=== PATIENT | male | born 1945 | race Caucasian/White ===

== ENCOUNTER 2019-12-22 11:15 | Inpatient (IN) ==
[2019-12-22 11:28] VITALS: BMI 31.1
--- NOTE | 2019-12-22 11:57 | DR.SOBA ---
HPI Time Seen Time Seen by Provider: 12/22/19 11:56 Primary Care Physician Primary Care Physician: dr de jesus in [place] HPI Comment HPI Comment: PATIENT IS 74YR OLD WHITE MALE WITH HISTORY OF COPD, DM AND HYPERTENSION IS IN ER WITH INCREASING SOB AND CHEST DISCOMFORT TIMES 5 WEEKS. WORSE TODAY. NO FEVER. PATIENT SEEN IN ER IN [facility] SEVERAL TIMES. WAS TOLD HE HAD PNEUMONIA AND WAS TREATED BUT NOT IMPROVING. Complaints Chief Complaint Doctors Comments: INCREASING SOB, LOWER EXTREMITY EDEMA AND CHEST DYSCOMFORT FOR 5 WEEKS. Chief Complaint:: pt stated he has been going to [facility] and they keep telling him he has pneumonia. pt stated he has been short of breath for several weeks but it is getting worse. COVID-19 Coronavirus risk:travel/contact w/high risk person: No Has patient experienced Coronavirus symptoms: Yes Coronavirus symptoms experienced: Shortness of Breath Reviewed Nurses Notes Reviewed: Yes Source History Provided: Patient Mode of Arrival Mode of Arrival: Wheelchair Timing Onset of Chief Complaint: 11/16/19 Duration Duration: Weeks Context Onset:: At Rest PE Risk Factors:: None History of:: COPD Currently on:: Inhaled Bronchodilators Prehospital Care:: O2 and Inhaled B2 Modifying Factors Worsens:: Exertion Improves:: Rest and Sitting Up Associated Signs and Symptoms Associated Signs and Symptoms: Wheeze, Chest Pain and Leg Swelling If Chest Pain Quality: Pleuritic (TIGHTNESS.) Location: Substernal and Chest Wall If Cough Cough: Productive and Yellow PMH PMH Past Medical History: Yes Past Medical History: COPD, Diabetes, GERD and Hypertension Past Surgical History: No Family History History of Family Medical Conditions: Yes Family Medical History: Cancer and Hypertension Social History Does patient currently use any type of tobacco product: No Have you used tobacco products in the last 12 months: No Type of Tobacco Use: None Does any household member use tobacco: No Alcohol Use: None Do you use any recreational Drugs:: No Lives With: Family Lives Where: Home Travel Risk Coronavirus risk:travel/contact w/high risk person: No Has patient experienced Coronavirus symptoms: Yes Coronavirus symptoms experienced: Shortness of Breath Infectious screening In the last 2 months have you had wt loss of >10#?: NO Have you had fever, night sweats or hemotysis?: No Have you traveled outside the country in the last 6 months?: No Isolation: Droplet ROS Review of Systems Constitutional: See HPI, Weakness and Fatigue; negative Fever Eyes: No Symptoms Reported and See HPI; negative Blurred Vision and Diplopia ENTM: No Symptoms Reported and See HPI Respiratoy: See HPI, Productive Cough, Short of Breath and Wheezing; negative Hemoptysis Cardiovascular: See HPI, Chest Pain and Edema Gastrointestinal/Abdominal: No Symptoms Reported and See HPI; negative Abdominal Pain, Diarrhea, Nausea and Vomiting Genitourinary: No Symptoms Reported and See HPI; negative Dysuria, Frequency and Hematuria Neurological: No Symptoms Reported, See HPI and Weakness; negative Headache and Dizziness Musculoskeletal: See HPI, Back Pain and Muscle Pain Integumentary: No Symptoms Reported and See HPI; negative Change in Color, Rash and Juandice Hematologic/Lymphatic: See HPI and Easy Bruising; negative Swollen Glands Endocrine: No Symptoms Reported and See HPI; negative Increased Thirst, Increased Urine and Decreased Appetite Psychiatric: No Symptoms Reported and See HPI All Other Systems: Reviewed and Negative PE Vital Signs Vitals: Temperature 98.6 F Pulse Rate 75 Respiratory Rate 16 Blood Pressure 175/79 O2 Sat by Pulse Oximetry 79 General Limitations: No Limitations General Appearance: Alert and In Distress Head Head Exam: Normal Inspection and Atraumatic Eyes Eye exam: Normal Appearance and PERRL; negative Scleral Icterus and Conjunctival Injection ENT ENT Exam: Normal Exam, Normal Oropharynx, Normal External Ear Exam and TM's Normal Bilaterally Neck Neck Exam: Normal Inspection and Trachea Midline; negative Tenderness and Lymphadenopathy Chest Chest Inspection: Normal Inspection and Symmetric Chest Wall Rise; negative Tenderness Respiratory Respiratory Exam: Prolonged Expiratory Phase and Respiratory Distress; negative Accessory Muscle Use and Chest Wall Tenderness Respiratory Exam: Bilateral: Wheezing and Bilateral: Rhonchi and Lower: Wheezing and Lower: Rhonchi Cardiovascular Cardiovascular Exam: Regular Rate, Normal Rhythm, Normal Heart Sounds and +S3; negative Systolic Murmur and Diastolic Murmur Abdominal Exam Abdominal Exam: Normal Inspection, Normal Bowel Sounds and Soft; negative Tenderness Extremities Extremities Exam: Normal Inspection Back Back Exam: Normal Inspection Neurologic Neurological Exam: Alert and Oriented X3 Psychiatric Psychiatric Exam: Normal Affect and Normal Mood Skin Skin Exam: Warm, Dry, Intact and Normal Color MDM Differential Diagnosis Differential Diagnosis: CHF, COPD, Dysrhythmia, Hyponatremia, Mycardial Infarction, Pneumonia, Pneumothorax, Pulmonary embolism and Respiratory Insufficiency COURSE Treatment Treatment: SEE ORDERS. LASIX 40MG IV. DUO NEB 0.3MG/3ML IN ER. Consultation Consultation Comments: DISCUSSED PATIENT WITH DR. GREGG. HE WILL ADMIT PATIENT. Education/Counseling Education/Counseling: Patient Educated On: Diagnosis ROR Labs Reviewed Laboratory Results Reviewed?: Yes Result Diagrams: 12/22/19 12:30 12/22/19 12:30 Laboratory: WBC 6.6 X10^3/uL (3.6-10.0) 12/22/19 12:30 RBC 3.38 X10^6/uL (4.7-6.0) L 12/22/19 12:30 Hgb 7.9 g/dL (13.5-18.0) L 12/22/19 12:30 Hct 23.7 % (42.0-54.0) L 12/22/19 12:30 MCV 70.2 fL (80.0-100.0) L 12/22/19 12:30 MCH 23.4 pg (27.0-34.0) L 12/22/19 12:30 MCHC 33.3 g/dL (33.0-35.0) 12/22/19 12:30 RDW 19.0 % (11.6-16.5) H 12/22/19 12:30 Plt Count 252 X10^3/uL (150.0-450.0) 12/22/19 12:30 Plt Count Comment Adequate (ADEQUATE) 12/22/19 12:30 MPV 6.7 fL (7.4-11.0) L 12/22/19 12:30 Neut % (Auto) 85.7 % (42.0-75.0) H 12/22/19 12:30 Lymph % (Auto) 5.2 % (21.0-51.0) L 12/22/19 12:30 [place] % (Auto) 8.0 % (0.0-13.0) 12/22/19 12:30 Eos % (Auto) 0.3 % (0.9-2.9) L 12/22/19 12:30 Baso % (Auto) 0.8 % (0.2-1.0) 12/22/19 12:30 Neut # (Auto) 5.7 x10^3/uL (2.2-4.8) H 12/22/19 12:30 Lymph # (Auto) 0.3 X10^3/uL (1.3-2.9) L 12/22/19 12:30 [place] # (Auto) 0.5 x10^3/uL (0.3-0.8) 12/22/19 12:30 Eos # (Auto) 0.0 x10^3/uL (0.0-0.2) 12/22/19 12:30 Baso # (Auto) 0.1 X10^3/uL (0.0-0.1) 12/22/19 12:30 Absolute Nucleated RBC 0.0 /100WBC 12/22/19 12:30 Plt Morphology Comment Normal (NORMAL) 12/22/19 12:30 RBC Morphology Abnormal (NORMAL) 12/22/19 12:30 Hypochromasia 1+ A 12/22/19 12:30 Sample Site Rrad 12/22/19 12:03 ABG pH 7.470 (7.35-7.45) H 12/22/19 12:03 ABG pCO2 55.0 mmHg (35.0-45.0) H* 12/22/19 12:03 ABG pO2 72.0 mmHg (80.0-100.0) L 12/22/19 12:03 ABG HCO3 40.0 mmol/L (22-26) H* 12/22/19 12:03 ABG O2 Saturation 95.0 % (90-100) 12/22/19 12:03 ABG Base Excess 14.0 mmol/L (-2.0-2.0) H 12/22/19 12:03 Christiano Test Pos 12/22/19 12:03 A-a Gradient 116.0 mmHg 12/22/19 12:03 FiO2 36.0 12/22/19 12:03 Blood Gas Comments Pt merlin well elj 12/22/19 12:03 Sodium 127 mmol/L (136-145) L 12/22/19 12:30 Corrected Sodium 130 mmol/L (136-145) L 12/22/19 12:30 Potassium 3.7 mmol/L (3.5-5.1) 12/22/19 12:30 Chloride 88 mmol/L (98-107) L 12/22/19 12:30 Carbon Dioxide 37.5 mmol/L (21-32) H 12/22/19 12:30 BUN 11 mg/dL (7-18) 12/22/19 12:30 Creatinine 0.72 mg/dL (0.70-1.30) 12/22/19 12:30 Est GFR (MDRD) Af Amer > 60 (>60) 12/22/19 12:30 Est GFR (MDRD) Non-Af > 60 (>60) 12/22/19 12:30 Glucose 229 mg/dL (65-99) H 12/22/19 12:30 Calcium 9.0 mg/dL (8.5-10.1) 12/22/19 12:30 Corrected Calcium 9.6 mg/dL (8.5-10.1) 12/22/19 12:30 Iron 15 ug/dL (50-175) L 12/22/19 12:30 Transferrin 247 mg/dL (202-364) 12/22/19 12:30 Ferritin 29 ng/mL (26-388) 12/22/19 12:30 Total Bilirubin 0.30 mg/dL (0.2-1.0) 12/22/19 12:30 AST 15 Units/L (15-37) 12/22/19 12:30 ALT 25 Units/L (12-78) 12/22/19 12:30 Alkaline Phosphatase 91 Units/L (46-116) 12/22/19 12:30 Creatine Kinase 100 Units/L (39-308) 12/22/19 12:30 CK-MB (CK-2) 1.9 ng/mL (0-4.0) 12/22/19 12:30 CK/CKMB % Calc 1.9 % (<4) 12/22/19 12:30 Troponin I < 0.02 ng/mL (0-1.5) 12/22/19 12:30 B-Natriuretic Peptide 424 pg/mL (0-79) H 12/22/19 12:30 Total Protein 6.6 g/dL (6.4-8.2) 12/22/19 12:30 Albumin 3.3 g/dL (3.4-5.0) L 12/22/19 12:30 Globulin 3.3 g/dL (2.5-4.5) 12/22/19 12:30 Albumin/Globulin Ratio 1.0 Ratio (1.1-2.1) L 12/22/19 12:30 Vitamin B12 629 pg/mL (193-986) 12/22/19 12:30 Folate 6.1 ng/mL (>8.6) L 12/22/19 12:30 Specimen Type Clean catch urine 12/22/19 12:10 Urine Color Yellow (YELLOW) 12/22/19 12:10 Urine Appearance Hazy (CLEAR) 12/22/19 12:10 Urine pH 8.0 (5.0 - 8.0) 12/22/19 12:10 Ur Specific [place] 1.010 (1.000-1.030) 12/22/19 12:10 Urine Protein 3+ (NEGATIVE) 12/22/19 12:10 Urine Glucose (UA) 4+ (NEGATIVE) 12/22/19 12:10 Urine Ketones Negative (NEGATIVE) 12/22/19 12:10 Urine Occult Blood Negative (NEGATIVE) 12/22/19 12:10 Urine Nitrite Negative (NEGATIVE) 12/22/19 12:10 Urine Bilirubin Negative (NEGATIVE) 12/22/19 12:10 Urine Urobilinogen Normal (NORMAL) 12/22/19 12:10 Ur Leukocyte Esterase Negative (NEGATIVE) 12/22/19 12:10 Urine RBC None seen /HPF (0-3) 12/22/19 12:10 Urine WBC None seen /HPF (0-5) 12/22/19 12:10 Ur Squamous Epith Cells Negative /HPF (NEGATIVE) 12/22/19 12:10 Urine Bacteria Negative /HPF (NEGATIVE) 12/22/19 12:10 Urine Mucus Few /HPF (NEGATIVE) 12/22/19 12:10 Ur Culture Indicated? No/not indicated 12/22/19 12:10 Blood Type O POSITIVE 12/22/19 12:20 Antibody Screen Negative 12/22/19 12:20 Crossmatch See Detail 12/22/19 12:20 EKG Rate: 88 [place]: Normal Rhythm: NSR Block: None Hypertrophy: LVH ST: Lat and Nonsp Opioid Opioid Risk Tool Age (Santos box if 16-45): No History of Preadolescent Sexual Abuse: No Total: 0 Total Score Risk Category: Low Risk Copyright: [employer] predicting aberrant behaviors Diagnosis Discharge Problem: Acute respiratory distress, COPD exacerbation, Atypical pneumonia CHF (congestive heart failure) Qualifiers: Heart failure type: combined systolic and diastolic Heart failure chronicity: acute on chronic Qualified Code(s): I50.43 - Acute on chronic combined systolic (congestive) and diastolic (congestive) heart failure Anemia Qualifiers: Anemia type: unspecified type Qualified Code(s): D64.9 - Anemia, unspecified Pulmonary edema Qualifiers: Chronicity: acute Qualified Code(s): J81.0 - Acute pulmonary edema Instructions Forms: Excuse From Work Precautions for COVID19 Patient Portal Social Distancing
[2019-12-22 12:12] LABS: ABG ALLEN TEST POS
[2019-12-22] MEDS ORDERED: DUONEB 0.5 MG/3 MG (3 mL) NEB ONE ×2 (12:28→12:35)
[2019-12-22] MEDS ORDERED: LASIX IVP ONE ×2 (12:34→13:19)
[2019-12-22 12:49] LABS: BILIRUBIN,URINE NEGATIVE (NEGATIVE); BLOOD/HEMOGLOBIN,URINE NEGATIVE (NEGATIVE); GLUCOSE, URINE 4+ (NEGATIVE); KETONES,URINE NEGATIVE (NEGATIVE); LEUKOCYTE ESTERASE ,URINE NEGATIVE (NEGATIVE); NITRITES,URINE NEGATIVE (NEGATIVE); PROTEIN,URINE 3+ (NEGATIVE); UROBILINOGEN,URINE NORMAL (NORMAL)
[2019-12-22 12:50] LABS: BASOPHILS # (AUTO) 0.1 X10^3/uL (0.0-0.1); BASOPHILS % (AUTO) 0.8 % (0.2-1.0); EOSINOPHILS % (AUTO) 0.3 % (0.9-2.9); HEMATOCRIT 23.7 % (42.0-54.0); HEMOGLOBIN 7.9 g/dL (13.5-18.0); LYMPHOCYTES # (AUTO) 0.3 X10^3/uL (1.3-2.9); LYMPHOCYTES % (AUTO) 5.2 % (21.0-51.0); MEAN CORPUSCULAR HEMOGLOBIN 23.4 pg (27.0-34.0); MEAN CORPUSCULAR HGB CONC 33.3 g/dL (33.0-35.0); MEAN CORPUSCULAR VOLUME 70.2 fL (80.0-100.0); MEAN PLATELET VOLUME 6.7 fL (7.4-11.0); MONOCYTES # (AUTO) 0.5 x10^3/uL (0.3-0.8); NEUTROPHILS # (AUTO) 5.7 x10^3/uL (2.2-4.8); NEUTROPHILS % (AUTO) 85.7 % (42.0-75.0); PLATELET COUNT 252 X10^3/uL (150.0-450.0); RED BLOOD COUNT 3.38 X10^6/uL (4.7-6.0); WHITE BLOOD COUNT 6.6 X10^3/uL (3.6-10.0)
[2019-12-22 12:54] LABS: APPEARANCE,URINE HAZY (CLEAR); BACTERIA,URINE NEGATIVE /HPF (NEGATIVE); COLOR,URINE YELLOW (YELLOW); MUCUS,URINE FEW /HPF (NEGATIVE); RBC,URINE NONE SEEN /HPF (0-3); SQUAMOUS EPITHELIAL CELL,UR NEGATIVE /HPF (NEGATIVE)
[2019-12-22 12:59] LABS: ALANINE AMINOTRANSFERASE 25 Units/L (12-78); ALBUMIN 3.3 g/dL (3.4-5.0); ALKALINE PHOSPHATASE 91 Units/L (46-116); ASPARTATE AMINO TRANSFERASE 15 Units/L (15-37); BLOOD UREA NITROGEN 11 mg/dL (7-18); CARBON DIOXIDE 37.5 mmol/L (21-32); CHLORIDE 88 mmol/L (98-107); COR CA(FOR HYPOALB) 9.6 mg/dL (8.5-10.1); COR NA(FOR HYPERGLY) 130 mmol/L (136-145); CREATININE 0.72 mg/dL (0.70-1.30); SODIUM 127 mmol/L (136-145); TOTAL PROTEIN 6.6 g/dL (6.4-8.2); eGFR NON BLACK RACES > 60 (>60)
[2019-12-22 13:07] LABS: HYPOCHROMASIA 1+; PLATELET MORPHOLOGY COMMENT NORMAL (NORMAL)
--- NOTE | 2019-12-22 13:16 | RAD ---
HISTORYSOB X SEVERAL WEEKS, POSSIBLE COVIDSTUDYCHEST x-ray, 1 VIEWCOMPARISONNoneFINDINGSThe trachea is midline. The cardiac silhouette is enlarged with possible CHF.Abnormal asymmetric densities are seen in the lungs that could possibly be atypical pneumonia and/or pulmonary edema. Likely small pleural effusions are seen without evidence of pneumothorax.No acute bony abnormality is seen.IMPRESSIONPossible CHF. Abnormal lung densities could be atypical pneumonia and/or pulmonary edema.Electronically signed by: Kal Pinto (December 22, 2019 13:15:09)
[2019-12-22] MEDS ORDERED: LASIX IVP PRN (15:25)
[2019-12-22] MEDS ORDERED: NS 500 ML IV 500 ML IV ONE (16:02)
[2019-12-22] MEDS ORDERED: NS 500 ML IV 500 ML IV PRN (16:10)
[2019-12-22] MEDS: ROCEPHIN VIAL 1 GRAM 1 G in NS 100 ML IV + SPIKE MINIBAG* 100 ML IV SCH (16:15)
[2019-12-22] MEDS: LASIX IVP SCH (16:26)
[2019-12-22] MEDS: VENTOLIN or PROAIR HFA IN SCH ×2 (16:47→21:35)
[2019-12-22] MEDS ORDERED: VENTOLIN or PROAIR HFA IN SCH (17:00)
[2019-12-22] MEDS: ZITHROMAX INJ 500 MG VIAL 500 MG in NS 250 ML IV 250 ML IV SCH (17:04)
[2019-12-22] MEDS ORDERED: LOPRESSOR TAB 50 MG PO ONE (18:03)
[2019-12-22 18:11] LABS: CKMB % 1.9 % (<4); CREATINE KINASE 100 Units/L (39-308); CREATINE KINASE MB 1.9 ng/mL (0-4.0); TROPONIN I < 0.02 ng/mL (0-1.5)
[2019-12-22 18:33] LABS: CKMB % 2.1 % (<4); CREATINE KINASE 90 Units/L (39-308); CREATINE KINASE MB 1.9 ng/mL (0-4.0); TROPONIN I < 0.02 ng/mL (0-1.5)
[2019-12-22] MEDS ORDERED: GLUCOPHAGE ONE (19:34)
--- NOTE | 2019-12-22 19:50 | RAD ---
KUBHISTORY: ABD DISTENTIONStudy: Single views of the abdomenComparison:NoneFindings:There is a normal bowel gas pattern.No free air..No abnormal calcifications or abnormal soft tissue shadows. No acute bony abnormalities.IMPRESSION:1. No evidence for acute abdominal pathology.Electronically signed by: DOUGLAS ARNDT (December 22, 2019 19:49:21)
[2019-12-22] MEDS ORDERED: SNACK - Diabetic Appropriate PO SCH (20:00)
[2019-12-22] MEDS: GLUCOPHAGE PO SCH (20:08)
[2019-12-22] MEDS: JANUVIA PO SCH (20:08)
[2019-12-22] MEDS: APRESOLINE TAB 25 MG PO SCH (20:08)
[2019-12-22] MEDS: SNACK - Diabetic Appropriate PO SCH (20:09)
[2019-12-22] MEDS: FOLIC ACID TAB 1 MG PO SCH (20:09)
[2019-12-22] MEDS ORDERED: HumuLIN R SUBCUT PRN (20:36)
[2019-12-22] MEDS: ZESTORETIC 20/25 MG PO SCH (20:55)
[2019-12-22] MEDS: INVOKANA PO SCH (21:13)
[2019-12-23 06:31] LABS: BASOPHILS # (AUTO) 0.1 X10^3/uL (0.0-0.1); BASOPHILS % (AUTO) 0.8 % (0.2-1.0); EOSINOPHILS # (AUTO) 0.3 x10^3/uL (0.0-0.2); EOSINOPHILS % (AUTO) 4.2 % (0.9-2.9); HEMATOCRIT 28.2 % (42.0-54.0); HEMOGLOBIN 9.4 g/dL (13.5-18.0); LYMPHOCYTES # (AUTO) 0.8 X10^3/uL (1.3-2.9); LYMPHOCYTES % (AUTO) 12.9 % (21.0-51.0); MEAN CORPUSCULAR HEMOGLOBIN 24.3 pg (27.0-34.0); MEAN CORPUSCULAR HGB CONC 33.2 g/dL (33.0-35.0); MEAN CORPUSCULAR VOLUME 73.1 fL (80.0-100.0); MEAN PLATELET VOLUME 6.7 fL (7.4-11.0); MONOCYTES # (AUTO) 0.5 x10^3/uL (0.3-0.8); MONOCYTES % (AUTO) 8.1 % (0.0-13.0); NEUTROPHILS # (AUTO) 4.6 x10^3/uL (2.2-4.8); PLATELET COUNT 262 X10^3/uL (150.0-450.0); RED BLOOD COUNT 3.86 X10^6/uL (4.7-6.0); RED CELL DISTRIBUTION WIDTH 21.1 % (11.6-16.5); WHITE BLOOD COUNT 6.2 X10^3/uL (3.6-10.0)
[2019-12-23 06:53] LABS: ALANINE AMINOTRANSFERASE 25 Units/L (12-78); ALBUMIN 3.4 g/dL (3.4-5.0); ALKALINE PHOSPHATASE 81 Units/L (46-116); ASPARTATE AMINO TRANSFERASE 19 Units/L (15-37); BLOOD UREA NITROGEN 10 mg/dL (7-18); CALCIUM 9.4 mg/dL (8.5-10.1); CHLORIDE 88 mmol/L (98-107); CKMB % 1.9 % (<4); CREATINE KINASE 63 Units/L (39-308); CREATINE KINASE MB 1.2 ng/mL (0-4.0); CREATININE 0.73 mg/dL (0.70-1.30); MAGNESIUM 1.9 mg/dL (1.7-2.9); SODIUM 132 mmol/L (136-145); TOTAL PROTEIN 6.7 g/dL (6.4-8.2); TROPONIN I < 0.02 ng/mL (0-1.5); eGFR NON BLACK RACES > 60 (>60)
[2019-12-23 06:54] LABS: ANISOCYTOSIS 1+; HYPOCHROMASIA SLIGHT; PLATELET MORPHOLOGY COMMENT NORMAL (NORMAL)
[2019-12-23] MEDS ORDERED: GLUCOPHAGE ONE ×3 (08:32→19:42)
[2019-12-23] MEDS ORDERED: TOPROL XL PO ONE ×2 (08:38→08:54)
[2019-12-23] MEDS ORDERED: TOPROL XL PO SCH (09:00)
[2019-12-23] MEDS ORDERED: GLUCOTROL PO SCH (09:00)
[2019-12-23] MEDS ORDERED: JANUVIA PO SCH (09:00)
[2019-12-23] MEDS: APRESOLINE TAB 25 MG PO SCH ×2 (09:01→20:44)
[2019-12-23] MEDS: GLUCOPHAGE PO SCH ×2 (09:02→20:45)
[2019-12-23] MEDS: FOLIC ACID TAB 1 MG PO SCH (09:02)
[2019-12-23] MEDS: INVOKANA PO SCH (09:02)
[2019-12-23] MEDS: LASIX IVP SCH (09:03)
[2019-12-23] MEDS: ROCEPHIN VIAL 1 GRAM 1 G in NS 100 ML IV + SPIKE MINIBAG* 100 ML IV SCH (09:03)
[2019-12-23] MEDS: JANUVIA PO SCH (09:03)
[2019-12-23] MEDS: NORVASC TAB 10 MG PO SCH (09:03)
[2019-12-23] MEDS: TOPROL XL PO SCH (09:04)
[2019-12-23] MEDS: ZOCOR TAB 20 MG PO SCH (09:04)
[2019-12-23] MEDS: SINGULAIR TAB 10 MG PO SCH (09:04)
[2019-12-23] MEDS: ZESTORETIC 20/25 MG PO SCH ×2 (09:04→20:45)
[2019-12-23] MEDS ORDERED: NS 100 ML IV 100 ML with VENOFER 400 MG IV NR ×2 (09:38)
[2019-12-23] MEDS: VENTOLIN or PROAIR HFA IN SCH ×3 (09:50→17:10)
[2019-12-23] MEDS: ZITHROMAX INJ 500 MG VIAL 500 MG in NS 250 ML IV 250 ML IV SCH (10:12)
[2019-12-23] MEDS: LOVENOX INJ 40 MG SYR SC SCH (11:24)
--- NOTE | 2019-12-23 17:16 | DR.PROGNOT ---
Hospital Progress Notes - Progress Note for Day of: Progress Note Date: 12/23/19 - Chief Complaint Chief Complaint: more comfortable . less abdominal distention and pressure . abdominal xray : no obstruction . had 2 units of red blood PC .. Hgb 9.4. Iron 15 .. LFT normal - Past Medical Family Social History Past Med/Fam/Surg Hx: No changes since H&P Allergies: Allergies No Known Drug Allergies Allergy (Verified 12/22/19 11:22) - Review Of Systems ROS: No change since H&P - Vital Signs Vital Signs: Temperature 98.2 F Pulse Rate [Apical] 64 Pulse Rate 62 Respiratory Rate 24 Blood Pressure [Right Arm] 167/76 Blood Pressure 154/67 O2 Sat by Pulse Oximetry 98 - Physical Exam Oriented: Normal Eyes: Normal Ear: Normal Nose: Normal Throat: Normal Respiratory: OTHER (moderate bilateral wheezing and rhonchi) Cardiovascular: Normal : Normal GI:Auscultation: Normal GI:Palpation: Normal GI: Tenderness: Other (soft abdomen , less tympanic , BS+) Musculoskeletal: Normal Psychiatric: Normal Speech Pattern: Clear, Appropriate - Laboratory and Diagnostics Result Diagrams: 12/23/19 06:12 12/23/19 06:12 Labs: Laboratory WBC 6.2 X10^3/uL (3.6-10.0) 12/23/19 06:12 RBC 3.86 X10^6/uL (4.7-6.0) L 12/23/19 06:12 Hgb 9.4 g/dL (13.5-18.0) L 12/23/19 06:12 Hct 28.2 % (42.0-54.0) L 12/23/19 06:12 MCV 73.1 fL (80.0-100.0) L 12/23/19 06:12 MCH 24.3 pg (27.0-34.0) L 12/23/19 06:12 MCHC 33.2 g/dL (33.0-35.0) 12/23/19 06:12 RDW 21.1 % (11.6-16.5) H 12/23/19 06:12 Plt Count 262 X10^3/uL (150.0-450.0) 12/23/19 06:12 Plt Count Comment Adequate (ADEQUATE) 12/23/19 06:12 MPV 6.7 fL (7.4-11.0) L 12/23/19 06:12 Neut % (Auto) 74.0 % (42.0-75.0) 12/23/19 06:12 Lymph % (Auto) 12.9 % (21.0-51.0) L 12/23/19 06:12 [place] % (Auto) 8.1 % (0.0-13.0) 12/23/19 06:12 Eos % (Auto) 4.2 % (0.9-2.9) H 12/23/19 06:12 Baso % (Auto) 0.8 % (0.2-1.0) 12/23/19 06:12 Neut # (Auto) 4.6 x10^3/uL (2.2-4.8) 12/23/19 06:12 Lymph # (Auto) 0.8 X10^3/uL (1.3-2.9) L 12/23/19 06:12 [place] # (Auto) 0.5 x10^3/uL (0.3-0.8) 12/23/19 06:12 Eos # (Auto) 0.3 x10^3/uL (0.0-0.2) H 12/23/19 06:12 Baso # (Auto) 0.1 X10^3/uL (0.0-0.1) 12/23/19 06:12 Absolute Nucleated RBC 0.1 /100WBC 12/23/19 06:12 Plt Morphology Comment Normal (NORMAL) 12/23/19 06:12 RBC Morphology Abnormal (NORMAL) 12/23/19 06:12 Hypochromasia Slight A 12/23/19 06:12 Anisocytosis 1+ A 12/23/19 06:12 Sample Site Rrad 12/22/19 12:03 ABG pH 7.470 (7.35-7.45) H 12/22/19 12:03 ABG pCO2 55.0 mmHg (35.0-45.0) H* 12/22/19 12:03 ABG pO2 72.0 mmHg (80.0-100.0) L 12/22/19 12:03 ABG HCO3 40.0 mmol/L (22-26) H* 12/22/19 12:03 ABG O2 Saturation 95.0 % (90-100) 12/22/19 12:03 ABG Base Excess 14.0 mmol/L (-2.0-2.0) H 12/22/19 12:03 Christiano Test Pos 12/22/19 12:03 A-a Gradient 116.0 mmHg 12/22/19 12:03 FiO2 36.0 12/22/19 12:03 Blood Gas Comments Pt merlin well elj 12/22/19 12:03 Sodium 132 mmol/L (136-145) L 12/23/19 06:12 Corrected Sodium TNP 12/23/19 06:12 Potassium 3.8 mmol/L (3.5-5.1) 12/23/19 06:12 Chloride 88 mmol/L (98-107) L 12/23/19 06:12 Carbon Dioxide 38.0 mmol/L (21-32) H 12/23/19 06:12 BUN 10 mg/dL (7-18) 12/23/19 06:12 Creatinine 0.73 mg/dL (0.70-1.30) 12/23/19 06:12 Est GFR (MDRD) Af Amer > 60 (>60) 12/23/19 06:12 Est GFR (MDRD) Non-Af > 60 (>60) 12/23/19 06:12 Glucose 107 mg/dL (65-99) H 12/23/19 06:12 Lactic Acid 1.1 mmol/L (0.4-2.0) 12/22/19 15:08 Calcium 9.4 mg/dL (8.5-10.1) 12/23/19 06:12 Corrected Calcium TNP 12/23/19 06:12 Magnesium 1.9 mg/dL (1.7-2.9) 12/23/19 06:12 Iron 15 ug/dL (50-175) L 12/22/19 12:30 Transferrin 247 mg/dL (202-364) 12/22/19 12:30 Ferritin 29 ng/mL (26-388) 12/22/19 12:30 Total Bilirubin 0.90 mg/dL (0.2-1.0) 12/23/19 06:12 AST 19 Units/L (15-37) 12/23/19 06:12 ALT 25 Units/L (12-78) 12/23/19 06:12 Alkaline Phosphatase 81 Units/L (46-116) 12/23/19 06:12 Creatine Kinase 63 Units/L (39-308) 12/23/19 06:12 CK-MB (CK-2) 1.2 ng/mL (0-4.0) 12/23/19 06:12 CK/CKMB % Calc 1.9 % (<4) 12/23/19 06:12 Troponin I < 0.02 ng/mL (0-1.5) 12/23/19 06:12 B-Natriuretic Peptide 424 pg/mL (0-79) H 12/22/19 12:30 Total Protein 6.7 g/dL (6.4-8.2) 12/23/19 06:12 Albumin 3.4 g/dL (3.4-5.0) 12/23/19 06:12 Globulin 3.3 g/dL (2.5-4.5) 12/23/19 06:12 Albumin/Globulin Ratio 1.0 Ratio (1.1-2.1) L 12/23/19 06:12 Vitamin B12 629 pg/mL (193-986) 12/22/19 12:30 Folate 6.1 ng/mL (>8.6) L 12/22/19 12:30 Specimen Type Clean catch urine 12/22/19 12:10 Urine Color Yellow (YELLOW) 12/22/19 12:10 Urine Appearance Hazy (CLEAR) 12/22/19 12:10 Urine pH 8.0 (5.0 - 8.0) 12/22/19 12:10 Ur Specific [place] 1.010 (1.000-1.030) 12/22/19 12:10 Urine Protein 3+ (NEGATIVE) 12/22/19 12:10 Urine Glucose (UA) 4+ (NEGATIVE) 12/22/19 12:10 Urine Ketones Negative (NEGATIVE) 12/22/19 12:10 Urine Occult Blood Negative (NEGATIVE) 12/22/19 12:10 Urine Nitrite Negative (NEGATIVE) 12/22/19 12:10 Urine Bilirubin Negative (NEGATIVE) 12/22/19 12:10 Urine Urobilinogen Normal (NORMAL) 12/22/19 12:10 Ur Leukocyte Esterase Negative (NEGATIVE) 12/22/19 12:10 Urine RBC None seen /HPF (0-3) 12/22/19 12:10 Urine WBC None seen /HPF (0-5) 12/22/19 12:10 Ur Squamous Epith Cells Negative /HPF (NEGATIVE) 12/22/19 12:10 Urine Bacteria Negative /HPF (NEGATIVE) 12/22/19 12:10 Urine Mucus Few /HPF (NEGATIVE) 12/22/19 12:10 Ur Culture Indicated? No/not indicated 12/22/19 12:10 Blood Type O POSITIVE 12/22/19 12:20 Antibody Screen Negative 12/22/19 12:20 Crossmatch See Detail 12/22/19 12:20 - Assessment and Plan 1: anemia and GI bleeding . CHF, COPD, DM. for EGD and colonoscopy on thursday . CEA and occult blood in stool . - Problem Patient Problems: Patient Problems Acute respiratory distress (Acute) R06.03 CHF (congestive heart failure) (Acute) I50.9 Anemia (Acute) D64.9 COPD exacerbation (Acute) J44.1 Pulmonary edema (Acute) J81.1 Atypical pneumonia (Acute) J18.9
[2019-12-23] MEDS: SNACK - Diabetic Appropriate PO SCH (20:44)
[2019-12-24 05:54] LABS: BASOPHILS # (AUTO) 0.1 X10^3/uL (0.0-0.1); EOSINOPHILS # (AUTO) 0.3 x10^3/uL (0.0-0.2); EOSINOPHILS % (AUTO) 4.3 % (0.9-2.9); HEMATOCRIT 29.1 % (42.0-54.0); HEMOGLOBIN 9.4 g/dL (13.5-18.0); LYMPHOCYTES # (AUTO) 0.7 X10^3/uL (1.3-2.9); LYMPHOCYTES % (AUTO) 10.7 % (21.0-51.0); MEAN CORPUSCULAR HEMOGLOBIN 23.7 pg (27.0-34.0); MEAN CORPUSCULAR HGB CONC 32.3 g/dL (33.0-35.0); MEAN CORPUSCULAR VOLUME 73.2 fL (80.0-100.0); MEAN PLATELET VOLUME 6.7 fL (7.4-11.0); MONOCYTES # (AUTO) 0.6 x10^3/uL (0.3-0.8); MONOCYTES % (AUTO) 8.4 % (0.0-13.0); NEUTROPHILS # (AUTO) 5.2 x10^3/uL (2.2-4.8); NEUTROPHILS % (AUTO) 75.6 % (42.0-75.0); PLATELET COUNT 292 X10^3/uL (150.0-450.0); RED BLOOD COUNT 3.97 X10^6/uL (4.7-6.0); RED CELL DISTRIBUTION WIDTH 21.4 % (11.6-16.5); WHITE BLOOD COUNT 6.8 X10^3/uL (3.6-10.0)
[2019-12-24 06:03] LABS: ALANINE AMINOTRANSFERASE 26 Units/L (12-78); ALBUMIN 3.3 g/dL (3.4-5.0); ALKALINE PHOSPHATASE 90 Units/L (46-116); ASPARTATE AMINO TRANSFERASE 20 Units/L (15-37); BLOOD UREA NITROGEN 14 mg/dL (7-18); CALCIUM 9.2 mg/dL (8.5-10.1); CHLORIDE 89 mmol/L (98-107); COR CA(FOR HYPOALB) 9.8 mg/dL (8.5-10.1); COR NA(FOR HYPERGLY) 132 mmol/L (136-145); CREATININE 0.99 mg/dL (0.70-1.30); SODIUM 130 mmol/L (136-145); TOTAL PROTEIN 6.6 g/dL (6.4-8.2); eGFR NON BLACK RACES > 60 (>60)
[2019-12-24 06:27] LABS: ANISOCYTOSIS 1+; HYPOCHROMASIA 1+; PLATELET MORPHOLOGY COMMENT NORMAL (NORMAL)
[2019-12-24 06:28] LABS: MICROCYTOSIS SLIGHT
--- NOTE | 2019-12-24 07:19 | RAD ---
HISTORYCHF hypertensionSTUDYAP and lateral chest two [id number] cardiomegaly. Diffuse prominence of interstitial pulmonary markings primarily in the lower lungs. Small pleural effusions, right larger than left. No consolida tion, or pneumothorax seen. The frontal view of the chest is mis-marked left/right.IMPRESSIONPersiste nt diffuse bilateral pulmonary densities and pleural effusions with stable cardiomegaly. The findings are most consistent with CHF although some element of pulmonary infection may be present.[employer] michi signed by: ZHEN DENISE (December 24, 2019 07:18:25)
[2019-12-24] MEDS: ROCEPHIN VIAL 1 GRAM 1 G in NS 100 ML IV + SPIKE MINIBAG* 100 ML IV SCH (08:01)
[2019-12-24] MEDS: LOVENOX INJ 40 MG SYR SC SCH (08:10)
[2019-12-24] MEDS ORDERED: GLUCOPHAGE ONE ×3 (08:13→19:58)
[2019-12-24] MEDS ORDERED: TOPROL XL PO ONE ×2 (08:13→08:26)
[2019-12-24] MEDS: FOLIC ACID TAB 1 MG PO SCH (08:18)
[2019-12-24] MEDS: SINGULAIR TAB 10 MG PO SCH (08:19)
[2019-12-24] MEDS: APRESOLINE TAB 25 MG PO SCH ×2 (08:20→20:22)
[2019-12-24] MEDS: ZESTORETIC 20/25 MG PO SCH ×2 (08:21→20:23)
[2019-12-24] MEDS: JANUVIA PO SCH (08:21)
[2019-12-24] MEDS: NORVASC TAB 10 MG PO SCH (08:22)
[2019-12-24] MEDS: ZOCOR TAB 20 MG PO SCH (08:22)
[2019-12-24] MEDS: GLUCOPHAGE PO SCH ×2 (08:23→20:23)
[2019-12-24] MEDS: INVOKANA PO SCH (08:24)
[2019-12-24] MEDS: LASIX PO SCH (08:24)
[2019-12-24] MEDS: TOPROL XL PO SCH (08:41)
[2019-12-24] MEDS ORDERED: NS 100 ML IV IV ONE (09:00)
[2019-12-24] MEDS ORDERED: VENOFER IV ONE (09:00)
[2019-12-24] MEDS: ZITHROMAX INJ 500 MG VIAL 500 MG in NS 250 ML IV 250 ML IV SCH (09:16)
[2019-12-24] MEDS: VENTOLIN or PROAIR HFA IN SCH ×3 (09:50→17:36)
[2019-12-24] MEDS ORDERED: NS 100 ML IV 100 ML with VENOFER 400 MG IV NR ×2 (11:22)
[2019-12-24] MEDS: SNACK - Diabetic Appropriate PO SCH (20:22)
[2019-12-25] MEDS ORDERED: LINZESS PO STA (03:07)
[2019-12-25] MEDS ORDERED: CITROMA PO ONE (03:07)
[2019-12-25] MEDS ORDERED: LINZESS PO ONE (03:29)
[2019-12-25] MEDS ORDERED: CITROMA ONE (03:29)
[2019-12-25 05:15] LABS: BASOPHILS # (AUTO) 0.1 X10^3/uL (0.0-0.1); EOSINOPHILS # (AUTO) 0.3 x10^3/uL (0.0-0.2); EOSINOPHILS % (AUTO) 4.8 % (0.9-2.9); HEMATOCRIT 29.5 % (42.0-54.0); HEMOGLOBIN 9.6 g/dL (13.5-18.0); LYMPHOCYTES # (AUTO) 0.8 X10^3/uL (1.3-2.9); LYMPHOCYTES % (AUTO) 11.7 % (21.0-51.0); MEAN CORPUSCULAR HEMOGLOBIN 24.1 pg (27.0-34.0); MEAN CORPUSCULAR HGB CONC 32.4 g/dL (33.0-35.0); MEAN CORPUSCULAR VOLUME 74.5 fL (80.0-100.0); MEAN PLATELET VOLUME 6.9 fL (7.4-11.0); MONOCYTES # (AUTO) 0.7 x10^3/uL (0.3-0.8); MONOCYTES % (AUTO) 10.3 % (0.0-13.0); NEUTROPHILS # (AUTO) 4.9 x10^3/uL (2.2-4.8); NEUTROPHILS % (AUTO) 72.2 % (42.0-75.0); PLATELET COUNT 307 X10^3/uL (150.0-450.0); RED BLOOD COUNT 3.97 X10^6/uL (4.7-6.0); RED CELL DISTRIBUTION WIDTH 21.1 % (11.6-16.5); WHITE BLOOD COUNT 6.8 X10^3/uL (3.6-10.0)
[2019-12-25 05:23] LABS: ALANINE AMINOTRANSFERASE 24 Units/L (12-78); ALBUMIN 3.4 g/dL (3.4-5.0); ALKALINE PHOSPHATASE 89 Units/L (46-116); ASPARTATE AMINO TRANSFERASE 18 Units/L (15-37); BLOOD UREA NITROGEN 15 mg/dL (7-18); CALCIUM 9.3 mg/dL (8.5-10.1); CARBON DIOXIDE 38.6 mmol/L (21-32); CHLORIDE 91 mmol/L (98-107); COR NA(FOR HYPERGLY) 133 mmol/L (136-145); CREATININE 0.95 mg/dL (0.70-1.30); SODIUM 132 mmol/L (136-145); TOTAL PROTEIN 6.8 g/dL (6.4-8.2); eGFR NON BLACK RACES > 60 (>60)
[2019-12-25 06:01] LABS: ANISOCYTOSIS 1+; HYPOCHROMASIA 1+; PLATELET MORPHOLOGY COMMENT NORMAL (NORMAL)
[2019-12-25] MEDS ORDERED: TOPROL XL PO ONE (08:04)
[2019-12-25] MEDS: ZOCOR TAB 20 MG PO SCH (08:45)
[2019-12-25] MEDS: ZESTORETIC 20/25 MG PO SCH ×2 (08:45→21:24)
[2019-12-25] MEDS: INVOKANA PO SCH (08:45)
[2019-12-25] MEDS: APRESOLINE TAB 25 MG PO SCH ×2 (08:45→21:24)
[2019-12-25] MEDS: FOLIC ACID TAB 1 MG PO SCH (08:45)
[2019-12-25] MEDS: LOVENOX INJ 40 MG SYR SC SCH (08:45)
[2019-12-25] MEDS: TOPROL XL PO SCH (08:45)
[2019-12-25] MEDS: SINGULAIR TAB 10 MG PO SCH (08:45)
[2019-12-25] MEDS: ROCEPHIN VIAL 1 GRAM 1 G in NS 100 ML IV + SPIKE MINIBAG* 100 ML IV SCH (08:45)
[2019-12-25] MEDS: LASIX PO SCH (08:45)
[2019-12-25] MEDS: NORVASC TAB 10 MG PO SCH (08:45)
[2019-12-25] MEDS: GLUCOPHAGE PO SCH ×3 (08:45→21:24)
[2019-12-25] MEDS: JANUVIA PO SCH (09:52)
[2019-12-25] MEDS: ZITHROMAX INJ 500 MG VIAL 500 MG in NS 250 ML IV 250 ML IV SCH (09:54)
[2019-12-25] MEDS ORDERED: SODIUM CHL HYPERTONIC ** 3% ** 500 ML IV NR (11:49)
[2019-12-25] MEDS ORDERED: NULYTELY or GO-LYTELY PO SCH (16:00)
[2019-12-25] MEDS: SNACK - Diabetic Appropriate PO SCH (19:39)
[2019-12-25] MEDS ORDERED: GLUCOPHAGE ONE (20:27)
[2019-12-25] MEDS: VENTOLIN or PROAIR HFA IN SCH (20:50)
[2019-12-26 05:10] LABS: BASOPHILS # (AUTO) 0.1 X10^3/uL (0.0-0.1); BASOPHILS % (AUTO) 1.5 % (0.2-1.0); EOSINOPHILS # (AUTO) 0.2 x10^3/uL (0.0-0.2); EOSINOPHILS % (AUTO) 2.9 % (0.9-2.9); HEMATOCRIT 27.7 % (42.0-54.0); HEMOGLOBIN 9.2 g/dL (13.5-18.0); LYMPHOCYTES # (AUTO) 0.7 X10^3/uL (1.3-2.9); LYMPHOCYTES % (AUTO) 13.4 % (21.0-51.0); MEAN CORPUSCULAR HEMOGLOBIN 24.8 pg (27.0-34.0); MEAN CORPUSCULAR HGB CONC 33.1 g/dL (33.0-35.0); MEAN CORPUSCULAR VOLUME 74.9 fL (80.0-100.0); MEAN PLATELET VOLUME 7.1 fL (7.4-11.0); MONOCYTES # (AUTO) 0.5 x10^3/uL (0.3-0.8); MONOCYTES % (AUTO) 9.7 % (0.0-13.0); NEUTROPHILS % (AUTO) 72.5 % (42.0-75.0); PLATELET COUNT 263 X10^3/uL (150.0-450.0); RED BLOOD COUNT 3.71 X10^6/uL (4.7-6.0); RED CELL DISTRIBUTION WIDTH 21.1 % (11.6-16.5); WHITE BLOOD COUNT 5.5 X10^3/uL (3.6-10.0)
[2019-12-26 05:21] LABS: ALANINE AMINOTRANSFERASE 22 Units/L (12-78); ALBUMIN 3.2 g/dL (3.4-5.0); ALKALINE PHOSPHATASE 62 Units/L (46-116); ASPARTATE AMINO TRANSFERASE 15 Units/L (15-37); BLOOD UREA NITROGEN 11 mg/dL (7-18); CALCIUM 8.6 mg/dL (8.5-10.1); CARBON DIOXIDE 38.1 mmol/L (21-32); CHLORIDE 100 mmol/L (98-107); COR CA(FOR HYPOALB) 9.2 mg/dL (8.5-10.1); CREATININE 0.63 mg/dL (0.70-1.30); SODIUM 141 mmol/L (136-145); TOTAL PROTEIN 6.3 g/dL (6.4-8.2); eGFR NON BLACK RACES > 60 (>60)
[2019-12-26 05:30] LABS: ANISOCYTOSIS 1+; HYPOCHROMASIA 1+; PLATELET MORPHOLOGY COMMENT NORMAL (NORMAL)
[2019-12-26] MEDS: ROCEPHIN VIAL 1 GRAM 1 G in NS 100 ML IV + SPIKE MINIBAG* 100 ML IV SCH (08:29)
[2019-12-26] MEDS ORDERED: NS 500 ML IV 500 ML IV ONE (08:47)
[2019-12-26] MEDS ORDERED: DIPRIVAN VIAL 40 ML ONE (08:52)
[2019-12-26] MEDS: VENTOLIN or PROAIR HFA IN SCH (09:33)
[2019-12-26] MEDS ORDERED: NS 100 ML IV 100 ML with VENOFER 400 MG IV NR ×2 (09:47)
--- NOTE | 2019-12-26 09:50 | OR.IMMED ---
Immediate Post-Op Note - Immediate Post-Op Note Pre-Op Diagnosis: anemia , GI bleeding , Post-Op Diagnosis: Moderate gastritis . colon polyps ( sigmoid , TC , hepatic flex ). diverticulosis , hemorrhoids Procedure: EGD w Bx . colonoscopy to the cecum , polypectomy x3 Estimated Blood Loss: none Drains: NONE Complications: none. Condition: Stable (to follow in 2 weeks .)
[2019-12-26] MEDS: ZITHROMAX INJ 500 MG VIAL 500 MG in NS 250 ML IV 250 ML IV SCH (10:47)
[2019-12-26] MEDS ORDERED: PROTONIX TAB 40 MG PO SCH (11:00)
[2019-12-26] MEDS ORDERED: GLUCOPHAGE ONE (11:27)
[2019-12-26] MEDS ORDERED: TOPROL XL PO ONE (11:28)
[2019-12-26] MEDS: SINGULAIR TAB 10 MG PO SCH (11:33)
[2019-12-26] MEDS: FOLIC ACID TAB 1 MG PO SCH (11:33)
[2019-12-26] MEDS: ZOCOR TAB 20 MG PO SCH (11:33)
[2019-12-26] MEDS: NORVASC TAB 10 MG PO SCH (11:33)
[2019-12-26] MEDS: APRESOLINE TAB 25 MG PO SCH (11:33)
[2019-12-26] MEDS: GLUCOPHAGE PO SCH (11:34)
[2019-12-26] MEDS: JANUVIA PO SCH (11:34)
[2019-12-26] MEDS: TOPROL XL PO SCH (11:34)
[2019-12-26] MEDS: ZESTORETIC 20/25 MG PO SCH (11:35)
[2019-12-26] MEDS: LOVENOX INJ 40 MG SYR SC SCH (11:35)
[2019-12-26] MEDS: LASIX PO SCH (11:35)
[2019-12-26] MEDS: INVOKANA PO SCH (11:57)
[2019-12-26] MEDS ORDERED: DIPRIVAN VIAL ONE (12:23)
[2019-12-26] MEDS ORDERED: VERSED ONE (12:23)
[2019-12-26] MEDS ORDERED: XYLOCAINE 1 % (PLAIN) ONE (12:23)
[2019-12-26 17:06] VITALS: BP 147/65
== END 2019-12-26 17:15 | disposition home or self-care (01) | DRG 291 ==
LOC: ER 11:20 → ICU 14:59 → MED/SURG 12-25 13:54
PROVIDERS: ADMIT Obstetrics & Gynecology Obstetrics; ATTEND Obstetrics & Gynecology Obstetrics
DX: J18.8 Other pneumonia, unspecified organism; K29.00 Acute gastritis without bleeding; E11.65 Type 2 diabetes mellitus with hyperglycemia; K64.8 Other hemorrhoids; J44.1 Chronic obstructive pulmonary disease with (acute) exacerbation; I10 Essential (primary) hypertension; B27.00 Gammaherpesviral mononucleosis without complication; K63.5 Polyp of colon; R06.03 Acute respiratory distress; Z11.59 Encounter for screening for other viral diseases; I50.43 Acute on chronic combined systolic (congestive) and diastolic (congestive) heart failure; D50.0 Iron deficiency anemia secondary to blood loss (chronic); K52.89 Other specified noninfective gastroenteritis and colitis
CPT/HCPCS: 36415; 36430; 36600; 71010; 71020; 71045; 71046; 74000; 74018; 80053; 81001; 82270; 82378; 82550; 82553; 82607; 82728; 82746; 82803; 83540; 83605; 83735; 83880; 84466; 84484; 85025; 86850; 86900; 86901; 86922; 87040; 88305; 88342; 93005; 94640; 94660; 96365; 96374; 99285; A4222; A4618; A7030; J0456; J0696; J1650; J1756; J1815; J1940; J2250; J2704; J7040; J7050; J7131; J7620; P9016